=== PATIENT | female | born 1945 ===

== ENCOUNTER 2017-11-20 16:33 | Inpatient (IN) | payer MEDICARE, MEDICAID ==
[2017-11-20 18:06] LABS: BASO # 0.1 K/uL (0.0-0.2); EOS % 0.2 % (0.0-4.0); HEMOGLOBIN 13.8 g/dL (11.0-16.0); LYMPH # 1.9 K/uL (1.0-4.3); LYMPH % 22.4 % (20.0-40.0); MEAN CELL VOLUME 83.3 fL (81.0-99.0); MEAN CORPUSCULAR HEMOGLOBIN 27.8 pg (27.0-31.0); MEAN CORPUSCULAR HGB CONC 33.4 g/dL (33.0-37.0); MEAN PLATELET VOLUME 9.2 fL (7.2-11.7); MONO # 0.4 K/uL (0.0-0.8); MONO % 4.5 % (0.0-10.0); NEUT # 6.2 K/uL (1.8-7.0); NEUT % 71.9 % (50.0-75.0); NRBC % 0.1 % (0.0-2.0); RBC 4.95 Mil/uL (3.80-5.20); RED CELL DISTRIBUTION WIDTH 13.6 % (11.5-14.5); WHITE BLOOD COUNT 8.6 K/uL (4.8-10.8)
[2017-11-20 18:21] LABS: ALB/GLOB RATIO 1.1 (1.0-2.1); ALBUMIN 4.2 g/dL (3.5-5.0); ALT/SGPT 10 U/L (9-52); AST/SGOT 21 U/L (14-36); BLOOD UREA NITROGEN 11 mg/dL (7-17); GFR AFRICAN-AMERICAN > 60; GFR NON-AFRICAN AMERICAN > 60; HDL CHOLESTEROL 47 mg/dL (30-70)
[2017-11-20] MEDS ORDERED: Magnesium Sulfate 1 gm in D5W 1 GM/100 ML BAG IVPB STA (18:26)
[2017-11-20 18:30] LABS: LDL CHOLESTEROL 139 mg/dL (0-129)
[2017-11-20 18:36] LABS: PROTHROMBIN TIME 11.8 SECONDS (9.7-12.2)
[2017-11-20] MEDS ORDERED: Magnesium Sulfate 1 gm in D5W 1 GM/100 ML BAG IVPB ONE (19:08)
--- NOTE | 2017-11-20 19:13 | C.PDOC ---
History Of Present Illness Pt c/o generalized weakness/malaise since yesterday. Then this afternoon she develops left facial and LUE numbness that resolved upon arrival to the ED. Time Seen by Provider: 11/20/17 16:55 Chief Complaint (Nursing): Weakness/Neurological Deficit History Per: Patient, Family Onset/Duration Of Symptoms: Hrs (2) Current Symptoms Are (Timing): Gone Fall Associated With With Symptoms: No Severity: Moderate Additional History Per: Prior Records - Symptoms Of CVA Associated Symptoms: denies: Impaired Speech, Seizure Activity, New Vision Deficit(Left), New Vision Deficit(Right), Decreased Ability To Walk, New Confusion Character Of Deficits: Left: Sensory Loss, Face: Sensory Loss, Arm: Sensory Loss Recent Head Trauma: No Past Medical History Reviewed: Historical Data, Nursing Documentation, Vital Signs Vital Signs: Last Vital Signs Temp 97.8 F 11/20/17 16:36 Pulse 64 11/20/17 18:57 Resp 14 11/20/17 18:57 BP 153/79 H 11/20/17 18:57 Pulse Ox 98 11/20/17 18:57 - Medical History PMH: Diabetes, HTN, Hypercholesterolemia Other Surgeries: Renal transplant recipient. Family History: States: Unknown Family Hx - Social History Hx Alcohol Use: No Hx Substance Use: No - Immunization History Hx Tetanus Toxoid Vaccination: (unk) Hx Influenza Vaccination: Yes Hx Pneumococcal Vaccination: No Review Of Systems Except As Marked, All Systems Reviewed And Found Negative. Constitutional: Positive for: Weakness, Malaise. Negative for: Fever Cardiovascular: Negative for: Chest Pain Respiratory: Negative for: Cough, Shortness of Breath Gastrointestinal: Negative for: Vomiting, Abdominal Pain Genitourinary: Negative for: Dysuria Musculoskeletal: Positive for: Other (b/l knee pain). Negative for: Neck Pain, Back Pain Skin: Negative for: Rash Neurological: Positive for: Numbness (left face/arm), Headache. Negative for: Weakness, Incoordination, Change in Speech, Confusion, Seizures, Altered Mental Status Physical Exam - Physical Exam Appears: Non-toxic, No Acute Distress Skin: Normal Color, Warm, Dry, No Rash Head: Atraumatic, Normacephalic Eye(s): bilateral: Normal Inspection, PERRL, EOMI Neck: Normal ROM, Supple Cardiovascular: Rhythm Regular Respiratory: Normal Breath Sounds, No Accessory Muscle Use Gastrointestinal/Abdominal: Soft, No Tenderness Back: No CVA Tenderness Extremity: Normal ROM, No Pedal Edema Pulses: Left Radial: Normal Neurological/Psych: Oriented x3, Normal Speech, Normal Cognition, Normal Cranial Nerves, No Cerebellar Signs, Normal Motor, Normal Sensation ED Course And Treatment - Laboratory Results Result Diagrams: 11/20/17 18:02 11/20/17 18:02 Lab Interpretation: Abnormal Interpretation Of Abnormal: Hypomagnesemia ECG: Interpreted By Me, Viewed By Me ECG Rhythm: Sinus Rhythm, Nonspecific Changes Interpretation Of ECG: LVH Rate From EC O2 Sat by Pulse Oximetry: 98 Pulse Ox Interpretation: Normal - Radiology CXR: Interpreted by Me, Viewed By Me CXR Interpretation: Yes: No Acute Disease - CT Scan/US CT head Other Rad Studies (CT/US): Read By Radiologist, Radiology Report Reviewed CT/US Interpretation: Geographic decreased attenuation in the right occipital lobe suggesting age-indeterminate ischemic change; multiple bilateral age indeterminate basal ganglia lacunar infarcts; no bleed. NIHSS Stroke Scale 2 - Date/Time Evaluation Performed Date Performed: 11/20/17 When Was NIHSS Performed: Baseline - How Severe is the Stroke Level of Consciousness: 0=Alert LOC to Questions: 0=Both comments correct LOC to commands: 0=Obeys both correctly Best Gaze: 0=Normal Visual: 0=No visual loss Facial: 0=Normal Motor Arm - Left: 0=No drift Motor Arm - Right: 0=No drift Motor Leg - Left: 0=No drift Motor Leg - Right: 0=No drift Limb Ataxia: 0=Absent Sensory: 0=Normal Best Language: 0=No aphasia Dysarthia: 0=Normal articulation Extinction & Inattention (Neglect): 0=Normal, no object Score: 0 Severity Of Stroke: 0 = No Stroke Disposition Discussed With : Rudolph Burns Comment: He accepted pt on hospitalist service. Doctor Will See Patient In The: Hospital Counseled Patient/Family Regarding: Studies Performed, Diagnosis - Disposition Disposition: HOSPITALIZED Disposition Time: 19:19 Condition: FAIR - Clinical Impression Clinical Impression: Hypomagnesemia, TIA (transient ischemic attack), Generalized weakness
--- NOTE | 2017-11-20 20:09 | CP.PCM.HP ---
History of Present Illness - History of Present Illness History of Present Illness: PGY-1 H&P for Dr. Burns CC: Left sided facial numbness This is a 72 year old female with PMHx HTN, DM, CKD s/p kidney transplant who presented complaining of left sided facial numbness. Patient appears to be a poor historian. She stated that it started yesterday; however, the problem persisted today prompting the patient to seek medical attention. Patient also had left sided lower lip numbness as well. Patient states that her symptoms have resolved on her way to the emergency room. Patient also complains of chronic weakness and fatigue for several days however she cannot quantify the exact timeframe. Patient denies headache, dizziness, lightheadedness, or other neurological complaint. Patient has no other acute complaints at this time. Per daughter at bedside, patient is not compliant with her magnesium supplements. PMHx: HTN, DM, CKD s/p kidney transplant PSHx: 33 years ago. Kidney transplant May 2010 Allergies: NKDA Social: Denies tobacco, alcohol, drugs. Originally from [place]. Lives with boyfriend Family Hx: Father and daughter with HTN PMD: Dr. Brian [employer] Receiver: Dr. Brown Home medications: Tacrolimus 1 mg (3 caps AM and 2 caps PM) Mycophenylate 180 mg (3 tabs BID) Prednisone 5 mg PO daily Bactrim 800/160 1 tab M, W, F Magnesium oxide 400 mg 2 tabs daily Vitamin D 1000 units daily Cinacalcet 30 mg daily Simvastatin 20 mg HS Metformin 750 mg daily Toprol 50 mg daily Amlodipine 5 mg daily Lantus 20 units HS Novolog 10 units SC ACTID Present on Admission - Present on Admission Any Indicators Present on Admission: No Review of Systems - Constitutional Constitutional: absent: Chills, Fever - EENT Eyes: absent: Change in Vision Ears: absent: Decreased Hearing Nose/Mouth/Throat: absent: Nasal Congestion - Cardiovascular Cardiovascular: absent: Chest Pain - Respiratory Respiratory: absent: Dyspnea - Gastrointestinal Gastrointestinal: absent: Abdominal Pain, Constipation, Diarrhea, Nausea, Vomiting - Genitourinary Genitourinary: absent: Dysuria - Musculoskeletal Musculoskeletal: Numbness, Tingling. absent: Back Pain - Integumentary Integumentary: absent: Rash - Neurological Neurological: Numbness, Tingling, Weakness. absent: Dizziness, Headaches - Psychiatric Psychiatric: absent: Anxiety - Endocrine Endocrine: Fatigue. absent: Palpitations Past Patient History - Past Social History Smoking Status: Never Smoked - CARDIAC Hx Hypercholesterolemia: Yes Hx Hypertension: Yes - ENDOCRINE/METABOLIC Hx Diabetes Mellitus Type 2: Yes - PSYCHIATRIC Hx Substance Use: No - SURGICAL HISTORY Hx Kidney Transplant: Yes (R side) - ANESTHESIA Hx Anesthesia: Yes Hx Anesthesia Reactions: No Meds Allergies/Adverse Reactions: Allergies Allergy/AdvReac Type Severity Reaction Status Date / Time No Known Allergies Allergy Unverified 11/20/17 16:53 Physical Exam - Constitutional Appears: No Acute Distress - Head Exam Head Exam: ATRAUMATIC, NORMOCEPHALIC - Eye Exam Eye Exam: EOMI, PERRL - ENT Exam ENT Exam: Mucous Membranes Moist - Respiratory Exam Respiratory Exam: Clear to Auscultation Bilateral, NORMAL BREATHING PATTERN. absent: Rales, Rhonchi, Wheezes - Cardiovascular Exam Cardiovascular Exam: REGULAR RHYTHM, +S1, +S2 - GI/Abdominal Exam GI & Abdominal Exam: Normal Bowel Sounds, Soft. absent: Distended, Tenderness - Extremities Exam Extremities exam: Positive for: pedal pulses present. Negative for: pedal edema , tenderness - Neurological Exam Neurological exam: Alert, CN II-XII Intact, Oriented x3 - Psychiatric Exam Psychiatric exam: Normal Affect, Normal Mood - Skin Skin Exam: Dry, Warm Results - Vital Signs Recent Vital Signs: Last Vital Signs Temp 97.8 F 11/20/17 16:36 Pulse 64 11/20/17 18:57 Resp 14 11/20/17 18:57 BP 153/79 H 11/20/17 18:57 Pulse Ox 98 11/20/17 19:20 - Labs Result Diagrams: 11/20/17 18:02 11/20/17 18:02 Labs: Laboratory Results - last 24 hr 11/20/17 11/20/17 11/20/17 16:39 18:02 18:02 WBC 8.6 RBC 4.95 Hgb 13.8 Hct 41.2 MCV 83.3 MCH 27.8 MCHC 33.4 RDW 13.6 Plt Count 237 MPV 9.2 Neut % (Auto) 71.9 Lymph % (Auto) 22.4 Taney % (Auto) 4.5 Eos % (Auto) 0.2 Baso % (Auto) 1.0 Neut # (Auto) 6.2 Lymph # (Auto) 1.9 Taney # (Auto) 0.4 Eos # (Auto) 0.0 Baso # (Auto) 0.1 PT 11.8 INR 1.0 APTT 26 Sodium Potassium Chloride Carbon Dioxide Anion Gap BUN Creatinine Est GFR ( Amer) Est GFR (Non-Af Amer) POC Glucose (mg/dL) 181 H Random Glucose Calcium Phosphorus Magnesium Total Bilirubin AST ALT Alkaline Phosphatase Troponin I Total Protein Albumin Globulin Albumin/Globulin Ratio Triglycerides Cholesterol LDL Cholesterol Direct HDL Cholesterol 11/20/17 18:02 WBC RBC Hgb Hct MCV MCH MCHC RDW Plt Count MPV Neut % (Auto) Lymph % (Auto) Taney % (Auto) Eos % (Auto) Baso % (Auto) Neut # (Auto) Lymph # (Auto) Taney # (Auto) Eos # (Auto) Baso # (Auto) PT INR APTT Sodium 140 Potassium 3.9 Chloride 101 Carbon Dioxide 26 Anion Gap 16 BUN 11 Creatinine 0.6 L Est GFR ( Amer) > 60 Est GFR (Non-Af Amer) > 60 POC Glucose (mg/dL) Random Glucose 172 H Calcium 9.0 Phosphorus 3.3 Magnesium 1.0 L* Total Bilirubin 0.8 AST 21 ALT 10 Alkaline Phosphatase 85 Troponin I < 0.0120 Total Protein 8.1 Albumin 4.2 Globulin 3.9 Albumin/Globulin Ratio 1.1 Triglycerides 135 Cholesterol 219 H LDL Cholesterol Direct 139 H HDL Cholesterol 47 Assessment & Plan - Assessment and Plan (Free Text) Plan: Left sided facial numbness Neurogenic cause versus electrolyte abnormality considering that hypomagnesemia can present with paresthesias CT head demonstrates an age indeterminant lesion in the right occipital region as well as some basal ganglia region lacunar infarcts of unknown age Stat MRI in the morning Consider Neurology consult after MRI ASA 81 mg STAT given and then ordered as daily History of DM Resume home Lantus 20 units HS Resume home Novolog 10 units SC ACTID Hold Metformin in the case of contrast studies History of Renal Transplant f/u Prograf and Mycophenylate levels. (These are send-out labs.) Continue home dosing of Prograf 3 mg in AM and 2 mg in PM Continue home dosing of Mycophenylate 180 mg 3 tablets BID. Patient brought in home med as we do not carry this formulation. Hypomagnesemia Most likely from the side effect of Prograf and Mycophenylate and considering that the patient hasn't been taking her Magnesium supplement 1 bag Mag Sulfate given in the ED 2 more bags of Mag Sulfate were ordered f/u morning labs History of HTN Resume home Toprol 50 mg daily Resume home Norvasc 5 mg daily Prophylaxis Heart Healthy Carb consistent diet SCDs Heparin 5000 units SC Q12H Discussed with Dr. Katy Kim PGY-1
[2017-11-20] MEDS: (Lantus) Insulin Glargine, Recombinant SC SCH (21:54)
[2017-11-20] MEDS: Patient's Own Medication - Tablet/Capusle PO SCH (23:12)
[2017-11-20] MEDS: Magnesium Sulfate 1 gm in D5W 1 GM/100 ML BAG IVPB SCH (23:12)
[2017-11-21] MEDS: Magnesium Sulfate 1 gm in D5W 1 GM/100 ML BAG IVPB SCH (00:11)
[2017-11-21] MEDS ORDERED: Glucagon Recombinant 1 mg Inj IM PRN (06:55)
[2017-11-21] MEDS ORDERED: Dextrose 50% SYRINGE Inj (50 ml) IV PRN (06:55)
--- NOTE | 2017-11-21 07:09 | CT ---
PROCEDURE: CT HEAD WITHOUT CONTRAST. HISTORY: Headache. Left facial/LUE numbness. COMPARISON: None available TECHNIQUE: Axial computed tomography images were obtained through the head/brain without intravenous contrast. Radiation dose: Total exam DLP = six hundred forty-two mGy-cm. This CT exam was performed using one or more of the following dose reduction techniques: Automated exposure control, adjustment of the mA and/or kV according to patient size, and/or use of iterative reconstruction technique. FINDINGS: HEMORRHAGE: No intracranial hemorrhage. BRAIN: Large confluent area of low attenuation seen within the right occipital lobe. Additional prominent confluent area of low attenuation seen within the posterior right parietotemporal region on series 4, image 22 adjacent to the posterior horn of the right lateral ventricle. This is of uncertain clinical etiology and may represent chronic ischemic change. Additional etiologies not excluded. Correlation with MRI would be helpful for further evaluation if clinically indicated. Scattered focal lucencies in the subcortical and periventricular white matter suggestive for chronic microvascular ischemic change. Mild prominence of the sulci, gyri, and ventricles. Multiple small lacunar infarcts in the bilateral basal ganglia; age indeterminate. VENTRICLES: As above. CALVARIUM: Unremarkable. PARANASAL SINUSES: Unremarkable as visualized. No significant inflammatory changes. MASTOID AIR CELLS: Unremarkable as visualized. No inflammatory changes. OTHER FINDINGS: None. IMPRESSION: Large confluent area of low attenuation seen within the right occipital lobe. Additional prominent confluent area of low attenuation seen within the posterior right parietotemporal region on series 4, image 22 adjacent to the posterior horn of the right lateral ventricle. This is of uncertain clinical etiology and may represent chronic ischemic change. Additional etiologies not excluded. Correlation with MRI would be helpful for further evaluation if clinically indicated. Chronic microvascular ischemic change. Bilateral age indeterminate basal ganglia lacunar infarcts. These findings were preliminarily reported at 6:56 p.m. on 11/20/[address] Minnie Rowell from [employer].
--- NOTE | 2017-11-21 07:59 | RAD ---
Chest x-ray single frontal view History: Generalized weakness. Comparison: None available. Findings: Mild venous congestion. Right hilar prominence. Consolidative changes in the right infrahilar region. Tortuous ectatic aorta. Mild cardiomegaly. Degenerative changes in the spine and shoulders. Impression: Mild venous congestion. Right hilar prominence. Consolidative changes in the right infrahilar region. Tortuous ectatic aorta. Mild cardiomegaly.
[2017-11-21] MEDS: (Novolog) Insulin Aspart, Recombinant 100 u/ml 10 ml vial SC SCH ×3 (08:24→17:06)
[2017-11-21] MEDS: (Novolin R) Insulin Human Regular 100 units/ml vial SC SCH ×4 (08:26→21:45)
[2017-11-21 08:45] LABS: BASO # 0.1 K/uL (0.0-0.2); BASO % 0.8 % (0.0-2.0); EOS # 0.1 K/uL (0.0-0.7); HEMOGLOBIN 14.4 g/dL (11.0-16.0); LYMPH # 1.9 K/uL (1.0-4.3); LYMPH % 26.1 % (20.0-40.0); MEAN CELL VOLUME 83.2 fL (81.0-99.0); MEAN CORPUSCULAR HEMOGLOBIN 28.6 pg (27.0-31.0); MEAN CORPUSCULAR HGB CONC 34.4 g/dL (33.0-37.0); MEAN PLATELET VOLUME 9.4 fL (7.2-11.7); MONO # 0.5 K/uL (0.0-0.8); MONO % 7.1 % (0.0-10.0); NEUT # 4.7 K/uL (1.8-7.0); NRBC % 0.2 % (0.0-2.0); RBC 5.02 Mil/uL (3.80-5.20); RED CELL DISTRIBUTION WIDTH 13.5 % (11.5-14.5); WHITE BLOOD COUNT 7.3 K/uL (4.8-10.8)
[2017-11-21 09:00] LABS: BLOOD UREA NITROGEN 11 mg/dL (7-17); CALCIUM 9.6 mg/dl (8.6-10.4); GFR AFRICAN-AMERICAN > 60; GFR NON-AFRICAN AMERICAN > 60
[2017-11-21] MEDS ORDERED: Potassium Chloride 20 mEq ER Tab PO STA (09:14)
[2017-11-21] MEDS ORDERED: Ergocalciferol 50,000 Intl Units Cap PO SCH (10:00)
[2017-11-21] MEDS ORDERED: Potassium Chloride 20 mEq ER Tab PO ONE ×2 (10:00→11:00)
[2017-11-21] MEDS: Metoprolol Succinate 50 mg XL Tab PO SCH (10:10)
[2017-11-21] MEDS: Patient's Own Medication - Tablet/Capusle PO SCH ×2 (10:11→17:30)
--- NOTE | 2017-11-21 11:54 | CP.PCM.PN ---
<Anitra MORILLOLisa Robina - Last Filed: 11/21/17 12:19> Subjective - Date & Time of Evaluation Date of Evaluation: 11/21/17 Time of Evaluation: 09:30 - Subjective Subjective: Medicine progress note for Dr. Ocampo's service: Patient seen and examined. Patient states she no longer has numbness in her face. She reports mild dizziness when she stands up quickly but is able to ambulate well. Patient states she is eating well and has no other complaints. Objective - Vital Signs/Intake and Output Vital Signs (last 24 hours): Temp Pulse Resp BP Pulse Ox 97.9 F 80 18 154/72 H 98 11/21/17 07:35 11/21/17 10:13 11/21/17 07:35 11/21/17 10:13 11/21/17 07:35 - Medications Medications: Current Medications Acetaminophen (Tylenol 325mg Tab) 650 mg PO Q6 PRN PRN Reason: pain, fever Amlodipine Besylate (Norvasc) 5 mg PO DAILY [facility] Last Admin: 11/21/17 10:11 Dose: 5 mg Aspirin (Aspirin Chewable) 81 mg PO DAILY [facility] Last Admin: 11/21/17 10:10 Dose: 81 mg Cinacalcet (Sensipar) 30 mg PO DAILY [facility] Last Admin: 11/21/17 10:11 Dose: 30 mg Dextrose (Dextrose 50% Inj) 0 ml IV STAT PRN; Protocol PRN Reason: Hypoglycemia Protocol Dextrose (Glutose 15) 0 gm PO ONCE PRN; Protocol PRN Reason: Hypoglycemia Protocol Ergocalciferol (Drisdol 50,000 Intl Units Cap) 1 cap PO QWK [facility] Last Admin: 11/21/17 10:10 Dose: 1 cap Glucagon (Glucagen Diagnostic Kit) 0 mg IM STAT PRN; Protocol PRN Reason: Hypoglycemia Protocol Heparin Sodium (Porcine) (Heparin) 5,000 units SC Q12H [facility] Last Admin: 11/21/17 07:46 Dose: 5,000 units Home Med (Patient's Own Medication) 540 tab PO BID [facility] Last Admin: 11/21/17 10:11 Dose: 540 tab Dextrose (Dextrose 5% In Water 1000 Ml) 1,000 mls @ 0 mls/hr IV .Q0M PRN; Protocol; Per Protocol PRN Reason: Hypoglycemia Protocol Dextrose/Sodium Chloride (Dextrose 5%-0.45% Ns 500 Ml) 500 mls @ 100 mls/hr IV .Q5H ONE Stop: 11/21/17 16:30 Insulin Aspart (Novolog) 10 unit SC ACTID [facility] Last Admin: 11/21/17 08:24 Dose: 10 unit Insulin Glargine (Lantus) 20 unit SC [facility] Last Admin: 11/20/17 21:54 Dose: 20 units Insulin Human Regular (Novolin R) 0 unit SC ACHS [facility] PRN Reason: Protocol Last Admin: 11/21/17 08:26 Dose: Not Given Metoprolol Succinate (Toprol Xl) 50 mg PO DAILY [facility] Last Admin: 11/21/17 10:10 Dose: 50 mg Pneumococcal Polyvalent Vaccine (Pneumovax 23 Vaccine) 0.5 ml IM .ONCE ONE Stop: 11/24/17 10:01 Prednisone (Prednisone Tab) 5 mg PO DAILY [facility] Last Admin: 11/21/17 10:10 Dose: 5 mg Rosuvastatin Calcium (Crestor) 5 mg PO [facility] Last Admin: 11/20/17 21:53 Dose: 5 mg Tacrolimus (Prograf Cap) 2 mg PO [facility] Last Admin: 11/20/17 23:13 Dose: 2 mg Tacrolimus (Prograf Cap) 3 mg PO [facility] Last Admin: 11/21/17 10:15 Dose: 3 mg - Labs Labs: 11/21/17 08:37 11/21/17 08:37 PT 11.8 SECONDS (9.7-12.2) 11/20/17 18:02 INR 1.0 11/20/17 18:02 APTT 26 SECONDS (21-34) 11/20/17 18:02 - Constitutional Appears: Non-toxic, No Acute Distress - Head Exam Head Exam: ATRAUMATIC, NORMOCEPHALIC - Eye Exam Eye Exam: EOMI, PERRL. absent: Nystagmus - ENT Exam ENT Exam: Mucous Membranes Moist - Respiratory Exam Respiratory Exam: Clear to Ausculation Bilateral, NORMAL BREATHING PATTERN - Cardiovascular Exam Cardiovascular Exam: +S1, +S2 - GI/Abdominal Exam GI & Abdominal Exam: Soft, Normal Bowel Sounds. absent: Tenderness - Extremities Exam Extremities Exam: Normal Inspection. absent: Calf Tenderness, Pedal Edema - Neurological Exam Neurological Exam: Alert, Awake, CN II-XII Intact Neuro motor strength exam: Left Upper Extremity: 5, Right Upper Extremity: 5, Left Lower Extremity: 5, Right Lower Extremity: 5 Additional comments: normal sensation to face - Psychiatric Exam Psychiatric exam: Normal Affect - Skin Skin Exam: Warm Assessment and Plan - Assessment and Plan (Free Text) Assessment: Left sided facial numbness resolved Neurogenic cause versus electrolyte abnormality considering that hypomagnesemia can present with paresthesias CT head demonstrates an age indeterminant lesion in the right occipital region as well as some basal ganglia region lacunar infarcts of unknown age MRI pending Consider Neurology consult after MRI ASA 81 mg STAT given and then ordered as daily History of DM Resume home Lantus 20 units HS Resume home Novolog 10 units SC ACTID Hold Metformin in the case of contrast studies History of Renal Transplant f/u Prograf and Mycophenylate levels. (These are send-out labs.) Continue home dosing of Prograf 3 mg in AM and 2 mg in PM Continue home dosing of Mycophenylate 180 mg 3 tablets BID. Patient brought in home med as we do not carry this formulation. Hypomagnesemia Most likely from the side effect of Prograf and Mycophenylate and considering that the patient hasn't been taking her Magnesium supplement magnesium normal this morning however potassium 2.9 patient given potassium, will repeat BMP in PM History of HTN Resume home Toprol 50 mg daily Resume home Norvasc 5 mg daily Prophylaxis Heart Healthy Carb consistent diet PT SCDs Heparin 5000 units SC Q12H Case discussed with Dr. Ocampo <Hair Ocampo - Last Filed: 11/21/17 13:52> Objective - Vital Signs/Intake and Output Vital Signs (last 24 hours): Temp Pulse Resp BP Pulse Ox 97.9 F 81 18 154/72 H 98 11/21/17 07:35 11/21/17 12:00 11/21/17 07:35 11/21/17 10:13 11/21/17 07:35 - Medications Medications: Current Medications Acetaminophen (Tylenol 325mg Tab) 650 mg PO Q6 PRN PRN Reason: pain, fever Amlodipine Besylate (Norvasc) 5 mg PO DAILY [facility] Last Admin: 11/21/17 10:11 Dose: 5 mg Aspirin (Aspirin Chewable) 81 mg PO DAILY [facility] Last Admin: 11/21/17 10:10 Dose: 81 mg Cinacalcet (Sensipar) 30 mg PO DAILY [facility] Last Admin: 11/21/17 10:11 Dose: 30 mg Dextrose (Dextrose 50% Inj) 0 ml IV STAT PRN; Protocol PRN Reason: Hypoglycemia Protocol Dextrose (Glutose 15) 0 gm PO ONCE PRN; Protocol PRN Reason: Hypoglycemia Protocol Ergocalciferol (Drisdol 50,000 Intl Units Cap) 1 cap PO QWK [facility] Last Admin: 11/21/17 10:10 Dose: 1 cap Glucagon (Glucagen Diagnostic Kit) 0 mg IM STAT PRN; Protocol PRN Reason: Hypoglycemia Protocol Heparin Sodium (Porcine) (Heparin) 5,000 units SC Q12H [facility] Last Admin: 11/21/17 07:46 Dose: 5,000 units Home Med (Patient's Own Medication) 540 tab PO BID [facility] Last Admin: 11/21/17 10:11 Dose: 540 tab Dextrose (Dextrose 5% In Water 1000 Ml) 1,000 mls @ 0 mls/hr IV .Q0M PRN; Protocol; Per Protocol PRN Reason: Hypoglycemia Protocol Dextrose/Sodium Chloride (Dextrose 5%-0.45% Ns 500 Ml) 500 mls @ 100 mls/hr IV .Q5H ONE Stop: 11/21/17 16:30 Last Admin: 11/21/17 11:41 Dose: 100 mls/hr Insulin Aspart (Novolog) 10 unit SC ACTID [facility] Last Admin: 11/21/17 11:43 Dose: Not Given Insulin Glargine (Lantus) 20 unit SC [facility] Last Admin: 11/20/17 21:54 Dose: 20 units Insulin Human Regular (Novolin R) 0 unit SC ACHS [facility] PRN Reason: Protocol Last Admin: 11/21/17 11:42 Dose: Not Given Metoprolol Succinate (Toprol Xl) 50 mg PO DAILY [facility] Last Admin: 11/21/17 10:10 Dose: 50 mg Pneumococcal Polyvalent Vaccine (Pneumovax 23 Vaccine) 0.5 ml IM .ONCE ONE Stop: 11/24/17 10:01 Prednisone (Prednisone Tab) 5 mg PO DAILY [facility] Last Admin: 11/21/17 10:10 Dose: 5 mg Rosuvastatin Calcium (Crestor) 5 mg PO [facility] Last Admin: 11/20/17 21:53 Dose: 5 mg Tacrolimus (Prograf Cap) 2 mg PO [facility] Last Admin: 11/20/17 23:13 Dose: 2 mg Tacrolimus (Prograf Cap) 3 mg PO QAM [facility] Last Admin: 11/21/17 10:15 Dose: 3 mg - Labs Labs: 11/21/17 08:37 11/21/17 08:37 PT 11.8 SECONDS (9.7-12.2) 11/20/17 18:02 INR 1.0 11/20/17 18:02 APTT 26 SECONDS (21-34) 11/20/17 18:02 Attending/Attestation - Attestation I have personally seen and examined this patient.: Yes I have fully participated in the care of the patient.: Yes I have reviewed all pertinent clinical information, including history, physical exam and plan: Yes Notes (Text): Medical attending: Patient was seen and examined by me as well. The patient was with family member at bedside. When we came to see her, she was walking on her own in the room. She was not in any acute distress when I saw her. On exam she was AAO x 3 and also CN 2-21 intact. She reported the sensation of the facial numbness was resolved. She has been reciving IV Mag and as well K replacments. Later on in the morning I was notified her blood sugar was 49 after she had insulin administedred and she did ok with juice. We are currently pending on MRI to be done at this time. Probably it will be tommorow. thank you Hair Ocampo
[2017-11-21 14:54] LABS: URINE BILIRUBIN NEGATIVE (NEGATIVE); URINE BLOOD NEGATIVE (NEGATIVE); URINE CLARITY Clear (Clear); URINE COLOR Yellow (YELLOW); URINE GLUCOSE (UA) NORMAL (Normal); URINE LEUKOCYTE ESTERASE NEG Leu/uL (Negative); URINE PROTEIN NEGATIVE (NEGATIVE); URINE UROBILINOGEN NORMAL mg/dL (0.2-1.0)
[2017-11-21 19:47] LABS: CALCIUM 8.9 mg/dl (8.6-10.4)
[2017-11-21] MEDS: (Lantus) Insulin Glargine, Recombinant SC SCH (21:45)
[2017-11-22 07:39] LABS: BASO # 0.1 K/uL (0.0-0.2); BASO % 1.1 % (0.0-2.0); EOS # 0.1 K/uL (0.0-0.7); HEMOGLOBIN 12.9 g/dL (11.0-16.0); LYMPH % 30.8 % (20.0-40.0); MEAN CELL VOLUME 83.2 fL (81.0-99.0); MEAN CORPUSCULAR HEMOGLOBIN 28.9 pg (27.0-31.0); MEAN CORPUSCULAR HGB CONC 34.7 g/dL (33.0-37.0); MEAN PLATELET VOLUME 9.9 fL (7.2-11.7); MONO # 0.5 K/uL (0.0-0.8); MONO % 8.3 % (0.0-10.0); NEUT # 3.8 K/uL (1.8-7.0); NEUT % 58.8 % (50.0-75.0); RBC 4.49 Mil/uL (3.80-5.20); RED CELL DISTRIBUTION WIDTH 13.7 % (11.5-14.5); WHITE BLOOD COUNT 6.5 K/uL (4.8-10.8)
[2017-11-22 07:56] LABS: BLOOD UREA NITROGEN 17 mg/dL (7-17); CALCIUM 9.3 mg/dl (8.6-10.4); GFR AFRICAN-AMERICAN > 60; GFR NON-AFRICAN AMERICAN > 60
[2017-11-22] MEDS: (Novolin R) Insulin Human Regular 100 units/ml vial SC SCH ×4 (08:25→21:46)
[2017-11-22] MEDS: (Novolog) Insulin Aspart, Recombinant 100 u/ml 10 ml vial SC SCH ×2 (08:25→11:54)
[2017-11-22] MEDS: Metoprolol Succinate 50 mg XL Tab PO SCH (11:09)
[2017-11-22] MEDS: Patient's Own Medication - Tablet/Capusle PO SCH ×2 (11:11→17:54)
[2017-11-22] MEDS: Magnesium Sulfate 1 gm in D5W 1 GM/100 ML BAG IVPB SCH ×2 (11:11→11:54)
--- NOTE | 2017-11-22 13:22 | CP.PCM.CON ---
History of Present Illness - History of Present Illness History of Present Illness: This is a 72 year old female with PMHx HTN, DM, CKD s/p kidney transplant who presented complaining of left sided facial numbness. Patient appears to be a poor historian. She stated that it started yesterday; however, the problem persisted today prompting the patient to seek medical attention. Patient also had left sided lower lip numbness as well. Patient states that her symptoms have resolved on her way to the emergency room. Patient also complains of chronic weakness and fatigue for several days however she cannot quantify the exact timeframe. Patient denies headache, dizziness, lightheadedness, or other neurological complaint. Patient has no other acute complaints at this time. Per daughter at bedside, patient is not compliant with her magnesium supplements. Kidney transpalnt was living unrelated; no rejection episides PMHx: HTN, DM, CKD s/p kidney transplant PSHx: 33 years ago. Kidney transplant May 2010 Allergies: NKDA Social: Denies tobacco, alcohol, drugs. Originally from [place]. Lives with boyfriend Family Hx: Father and daughter with HTN PMD: Dr. Brian Home medications: Tacrolimus 1 mg (3 caps AM and 2 caps PM) Mycophenylate 180 mg (3 tabs BID) Prednisone 5 mg PO daily Bactrim 800/160 1 tab M, W, F Magnesium oxide 400 mg 2 tabs daily Vitamin D 1000 units daily Cinacalcet 30 mg daily Simvastatin 20 mg HS Metformin 750 mg daily Toprol 50 mg daily Amlodipine 5 mg daily Lantus 20 units HS Novolog 10 units SC ACTID Review of Systems - Review of Systems Systems not reviewed;Unavailable: Language Barrier - Constitutional Constitutional: Lethargy, Weakness - EENT Eyes: absent: As Per HPI, Blind Spots, Blurred Vision, Change in Vision, Decreased Night Vision, Diplopia, Discharge, Dry Eye, Exophthalmos, Floaters, Irritation, Itchy Eyes, Loss of Peripheral Vision, Pain, Photophobia, Requires Corrective Lenses, Sees Flashes, Spots in Vision, Tunnel Vision, Other Visual Disturbances, Loss of Vision, Other Ears: absent: As Per HPI, Decreased Hearing, Ear Discharge, Ear Pain, Tinnitus, Abnormal Hearing, Disequilibrium, Dizziness, Other Nose/Mouth/Throat: absent: As Per HPI, Epistaxis, Nasal Congestion, Nasal Discharge, Nasal Obstruction, Nasal Trauma, Nose Pain, Post Nasal Drip, Sinus Pain, Sinus Pressure, Bleeding Gums, Change in Voice, Dental Pain, Dry Mouth, Dysphagia, Halitosis, Hoarsness, Lip Swelling, Mouth Lesions, Mouth Pain, Odynophagia, Sore Throat, Throat Swelling, Tongue Swelling, Facial Pain, Neck Pain, Neck Mass, Other - Cardiovascular Cardiovascular: Dyspnea on Exertion, Lightheadedness - Respiratory Respiratory: absent: As Per HPI, Cough, Dyspnea, Hemoptysis, Dyspnea on Exertion , Wheezing, Snoring, Stridor, Pain on Inspiration, Chest Congestion, Excessive Mucous Production, Change in Mucous Color, Pain with Coughing, Other - Gastrointestinal Gastrointestinal: absent: As Per HPI, Abdominal Pain, Belching, Bloating, Change in Bowel Habits, Change in Stool Character, Coffee Ground Emesis, Constipation, Cramping, Diarrhea, Dyspepsia, Dysphagia, Early Satiety, Excessive Flatus, Fecal Incontinence, Heartburn, Hematemesis, Hematochezia, Loose Stools, Melena, Nausea, Odynophagia, Temesmus, Vomiting, Other - Genitourinary Genitourinary: As Per HPI - Musculoskeletal Musculoskeletal: Muscle Weakness, Myalgias - Neurological Neurological: Confusion, Weakness Past Patient History - Past Medical History & Family History Past Medical History?: Yes Past Family History: Reviewed and not pertinent - Past Social History Smoking Status: Never Smoked Chewing Tobacco Use: No Cigar Use: No Alcohol: None Drugs: Denies Home Situation {Lives}: With Family - CARDIAC Hx Hypercholesterolemia: Yes Hx Hypertension: Yes - ENDOCRINE/METABOLIC Hx Diabetes Mellitus Type 2: Yes - MUSCULOSKELETAL/RHEUMATOLOGICAL Hx Falls: No - PSYCHIATRIC Hx Substance Use: No - SURGICAL HISTORY Hx Kidney Transplant: Yes (R side) - ANESTHESIA Hx Anesthesia: Yes Hx Anesthesia Reactions: No Meds Allergies/Adverse Reactions: Allergies Allergy/AdvReac Type Severity Reaction Status Date / Time No Known Allergies Allergy Unverified 11/20/17 16:53 - Medications Medications: Current Medications Acetaminophen (Tylenol 325mg Tab) 650 mg PO Q6 PRN PRN Reason: pain, fever Amlodipine Besylate (Norvasc) 5 mg PO DAILY [facility] Last Admin: 11/22/17 11:07 Dose: 5 mg Aspirin (Aspirin Chewable) 81 mg PO DAILY [facility] Last Admin: 11/22/17 11:06 Dose: 81 mg Cinacalcet (Sensipar) 30 mg PO DAILY [facility] Last Admin: 11/22/17 11:08 Dose: 30 mg Dextrose (Dextrose 50% Inj) 0 ml IV STAT PRN; Protocol PRN Reason: Hypoglycemia Protocol Dextrose (Glutose 15) 0 gm PO ONCE PRN; Protocol PRN Reason: Hypoglycemia Protocol Ergocalciferol (Drisdol 50,000 Intl Units Cap) 1 cap PO QWK [facility] Last Admin: 11/21/17 10:10 Dose: 1 cap Glucagon (Glucagen Diagnostic Kit) 0 mg IM STAT PRN; Protocol PRN Reason: Hypoglycemia Protocol Heparin Sodium (Porcine) (Heparin) 5,000 units SC Q12H [facility] Last Admin: 11/22/17 11:09 Dose: 5,000 units Home Med (Patient's Own Medication) 540 tab PO BID [facility] Last Admin: 11/22/17 11:11 Dose: 540 tab Dextrose (Dextrose 5% In Water 1000 Ml) 1,000 mls @ 0 mls/hr IV .Q0M PRN; Protocol; Per Protocol PRN Reason: Hypoglycemia Protocol Insulin Human Regular (Novolin R) 0 unit SC ACHS [facility] PRN Reason: Protocol Last Admin: 11/22/17 11:31 Dose: Not Given Metoprolol Succinate (Toprol Xl) 50 mg PO DAILY [facility] Last Admin: 11/22/17 11:09 Dose: 50 mg Pneumococcal Polyvalent Vaccine (Pneumovax 23 Vaccine) 0.5 ml IM .ONCE ONE Stop: 11/24/17 10:01 Prednisone (Prednisone Tab) 5 mg PO DAILY [facility] Last Admin: 11/22/17 11:08 Dose: 5 mg Rosuvastatin Calcium (Crestor) 5 mg PO [facility] Last Admin: 11/21/17 21:19 Dose: 5 mg Tacrolimus (Prograf Cap) 2 mg PO HS [facility] Last Admin: 11/21/17 21:20 Dose: 2 mg Tacrolimus (Prograf Cap) 3 mg PO QAM [facility] Last Admin: 11/22/17 11:09 Dose: 3 mg Physical Exam - Constitutional Appears: No Acute Distress, Chronically Ill - Head Exam Head Exam: ATRAUMATIC, NORMAL INSPECTION - Eye Exam Eye Exam: EOMI, Normal appearance - Neck Exam Neck exam: Positive for: Normal Inspection. Negative for: Tenderness - Respiratory Exam Respiratory Exam: Clear to Auscultation Bilateral, NORMAL BREATHING PATTERN - Cardiovascular Exam Cardiovascular Exam: REGULAR RHYTHM, +S1 - GI/Abdominal Exam GI & Abdominal Exam: Soft. absent: Tenderness - Extremities Exam Extremities exam: Positive for: normal inspection. Negative for: tenderness - Neurological Exam Neurological exam: Alert, CN II-XII Intact, Oriented x3 - Skin Skin Exam: Dry, Warm Results - Vital Signs Recent Vital Signs: Last Vital Signs Temp 98.5 F 11/22/17 07:00 Pulse 59 L 11/22/17 07:00 Resp 20 11/22/17 07:00 BP 170/63 H 11/22/17 07:00 Pulse Ox 98 11/22/17 07:00 - Labs Result Diagrams: 11/22/17 07:26 11/22/17 07:26 Labs: Laboratory Results - last 24 hr 11/21/17 11/21/17 11/21/17 14:48 16:31 19:31 WBC RBC Hgb Hct MCV MCH MCHC RDW Plt Count MPV Neut % (Auto) Lymph % (Auto) [place] % (Auto) Eos % (Auto) Baso % (Auto) Neut # (Auto) Lymph # (Auto) [place] # (Auto) Eos # (Auto) Baso # (Auto) Sodium 135 Potassium 4.9 Chloride 99 Carbon Dioxide 25 Anion Gap 16 BUN 14 Creatinine 1.1 Est GFR ( Amer) 59 Est GFR (Non-Af Amer) 49 POC Glucose (mg/dL) 269 H Random Glucose 241 H Calcium 8.9 Phosphorus Magnesium Urine Color Yellow Urine Clarity Clear Urine pH 6.0 Ur Specific [place] 1.008 Urine Protein Negative Urine Glucose (UA) Normal Urine Ketones Negative Urine Blood Negative Urine Nitrate Negative Urine Bilirubin Negative Urine Urobilinogen Normal Ur Leukocyte Esterase Neg Urine WBC (Auto) < 1 11/21/17 11/22/17 11/22/17 21:11 06:24 07:26 WBC 6.5 RBC 4.49 Hgb 12.9 Hct 37.3 MCV 83.2 MCH 28.9 MCHC 34.7 RDW 13.7 Plt Count 212 MPV 9.9 Neut % (Auto) 58.8 Lymph % (Auto) 30.8 [place] % (Auto) 8.3 Eos % (Auto) 1.0 Baso % (Auto) 1.1 Neut # (Auto) 3.8 Lymph # (Auto) 2.0 [place] # (Auto) 0.5 Eos # (Auto) 0.1 Baso # (Auto) 0.1 Sodium Potassium Chloride Carbon Dioxide Anion Gap BUN Creatinine Est GFR ( Amer) Est GFR (Non-Af Amer) POC Glucose (mg/dL) 189 H 178 H Random Glucose Calcium Phosphorus Magnesium Urine Color Urine Clarity Urine pH Ur Specific [place] Urine Protein Urine Glucose (UA) Urine Ketones Urine Blood Urine Nitrate Urine Bilirubin Urine Urobilinogen Ur Leukocyte Esterase Urine WBC (Auto) 11/22/17 11/22/17 07:26 11:23 WBC RBC Hgb Hct MCV MCH MCHC RDW Plt Count MPV Neut % (Auto) Lymph % (Auto) [place] % (Auto) Eos % (Auto) Baso % (Auto) Neut # (Auto) Lymph # (Auto) [place] # (Auto) Eos # (Auto) Baso # (Auto) Sodium 140 Potassium 3.8 Chloride 102 Carbon Dioxide 27 Anion Gap 15 BUN 17 Creatinine 0.8 Est GFR ( Amer) > 60 Est GFR (Non-Af Amer) > 60 POC Glucose (mg/dL) 136 H Random Glucose 162 H Calcium 9.3 Phosphorus 3.3 Magnesium 1.3 L Urine Color Urine Clarity Urine pH Ur Specific [place] Urine Protein Urine Glucose (UA) Urine Ketones Urine Blood Urine Nitrate Urine Bilirubin Urine Urobilinogen Ur Leukocyte Esterase Urine WBC (Auto) Assessment & Plan (1) History of kidney transplant Status: Acute (2) TIA (transient ischemic attack) Status: Acute (3) Type 2 diabetes mellitus with diabetic nephropathy Status: Acute (4) Hypoglycemia Status: Acute - Assessment and Plan (Free Text) Plan: hypoglycemia due to mag wasting from tacrolimus- is RTA would replete oral mag more vigorously
--- NOTE | 2017-11-22 14:04 | CP.PCM.PN ---
<Magno Timmons - Last Filed: 11/22/17 18:05> Subjective - Date & Time of Evaluation Date of Evaluation: 11/22/17 Time of Evaluation: 14:03 - Subjective Subjective: Patient seen and examined at bedside. Doing well with no complaints at this time. Denies any weakness or numbness. Denies any syncope or blurry vision. Objective - Vital Signs/Intake and Output Vital Signs (last 24 hours): Temp Pulse Resp BP Pulse Ox 98.5 F 59 L 20 170/63 H 98 11/22/17 07:00 11/22/17 07:00 11/22/17 07:00 11/22/17 07:00 11/22/17 07:00 Intake and Output: 11/22/17 11/22/17 06:59 18:59 Intake Total 200 Balance 200 - Medications Medications: Current Medications Acetaminophen (Tylenol 325mg Tab) 650 mg PO Q6 PRN PRN Reason: pain, fever Amlodipine Besylate (Norvasc) 5 mg PO DAILY [facility] Last Admin: 11/22/17 11:07 Dose: 5 mg Aspirin (Aspirin Chewable) 81 mg PO DAILY [facility] Last Admin: 11/22/17 11:06 Dose: 81 mg Cinacalcet (Sensipar) 30 mg PO DAILY [facility] Last Admin: 11/22/17 11:08 Dose: 30 mg Dextrose (Dextrose 50% Inj) 0 ml IV STAT PRN; Protocol PRN Reason: Hypoglycemia Protocol Dextrose (Glutose 15) 0 gm PO ONCE PRN; Protocol PRN Reason: Hypoglycemia Protocol Ergocalciferol (Drisdol 50,000 Intl Units Cap) 1 cap PO QWK [facility] Last Admin: 11/21/17 10:10 Dose: 1 cap Glucagon (Glucagen Diagnostic Kit) 0 mg IM STAT PRN; Protocol PRN Reason: Hypoglycemia Protocol Heparin Sodium (Porcine) (Heparin) 5,000 units SC Q12H [facility] Last Admin: 11/22/17 11:09 Dose: 5,000 units Home Med (Patient's Own Medication) 540 tab PO BID [facility] Last Admin: 11/22/17 11:11 Dose: 540 tab Dextrose (Dextrose 5% In Water 1000 Ml) 1,000 mls @ 0 mls/hr IV .Q0M PRN; Protocol; Per Protocol PRN Reason: Hypoglycemia Protocol Insulin Human Regular (Novolin R) 0 unit SC ACHS [facility] PRN Reason: Protocol Last Admin: 11/22/17 11:31 Dose: Not Given Magnesium Oxide (Mag-Ox) 800 mg PO BID [facility] Metoprolol Succinate (Toprol Xl) 50 mg PO DAILY [facility] Last Admin: 11/22/17 11:09 Dose: 50 mg Pneumococcal Polyvalent Vaccine (Pneumovax 23 Vaccine) 0.5 ml IM .ONCE ONE Stop: 11/24/17 10:01 Prednisone (Prednisone Tab) 5 mg PO DAILY [facility] Last Admin: 11/22/17 11:08 Dose: 5 mg Rosuvastatin Calcium (Crestor) 5 mg PO HS [facility] Last Admin: 11/21/17 21:19 Dose: 5 mg Tacrolimus (Prograf Cap) 2 mg PO HS [facility] Last Admin: 11/21/17 21:20 Dose: 2 mg Tacrolimus (Prograf Cap) 3 mg PO QAM [facility] Last Admin: 11/22/17 11:09 Dose: 3 mg Trimethoprim/Sulfamethoxazole (Bactrim Ds Tab) 1 tab PO MWF [facility] PRN Reason: Protocol - Labs Labs: 11/22/17 07:26 11/22/17 07:26 PT 11.8 SECONDS (9.7-12.2) 11/20/17 18:02 INR 1.0 11/20/17 18:02 APTT 26 SECONDS (21-34) 11/20/17 18:02 - Constitutional Appears: Well - Head Exam Head Exam: ATRAUMATIC, NORMAL INSPECTION, NORMOCEPHALIC - Eye Exam Eye Exam: EOMI, Normal appearance, PERRL Pupil Exam: NORMAL ACCOMODATION, PERRL - ENT Exam ENT Exam: Mucous Membranes Moist, Normal Exam - Neck Exam Neck Exam: Full ROM, Normal Inspection. absent: Lymphadenopathy - Respiratory Exam Respiratory Exam: Clear to Ausculation Bilateral, NORMAL BREATHING PATTERN - Cardiovascular Exam Cardiovascular Exam: REGULAR RHYTHM, +S1, +S2. absent: Murmur - GI/Abdominal Exam GI & Abdominal Exam: Soft, Normal Bowel Sounds. absent: Tenderness - Rectal Exam Rectal Exam: NORMAL INSPECTION - Extremities Exam Extremities Exam: Full ROM, Normal Capillary Refill, Normal Inspection. absent : Joint Swelling, Pedal Edema - Back Exam Back Exam: NORMAL INSPECTION - Neurological Exam Neurological Exam: Alert, Awake, CN II-XII Intact, Normal Gait, Oriented x3 - Psychiatric Exam Psychiatric exam: Normal Affect, Normal Mood - Skin Skin Exam: Dry, Intact, Normal Color, Warm Assessment and Plan - Assessment and Plan (Free Text) Assessment: Left sided facial numbness Resolved CT head demonstrates an age indeterminant lesion in the right occipital region as well as some basal ganglia region lacunar infarcts of unknown age Patient refused MRI Neuro (Kendall) - F/u reccs ASA 81 QD History of DM ISS History of Renal Transplant Prograf 3 mg in AM and 2 mg in PM Mycophenylate 180 mg 3 tablets BID Hypomagnesemia Nephro (Henrry) - reccs 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, Replace PO BID History of HTN Toprol 50 mg daily Norvasc 5 mg daily Prophylaxis Heart Healthy Carb consistent diet PT SCDs Heparin 5000 units SC Q12H PT/OT <Jordan Shelton - Last Filed: 11/22/17 19:14> Objective - Vital Signs/Intake and Output Vital Signs (last 24 hours): Temp Pulse Resp BP Pulse Ox 98.1 F 67 18 149/79 99 11/22/17 16:44 11/22/17 16:44 11/22/17 16:44 11/22/17 16:44 11/22/17 16:44 Intake and Output: 11/22/17 11/23/17 18:59 06:59 Intake Total 640 Balance 640 - Medications Medications: Current Medications Acetaminophen (Tylenol 325mg Tab) 650 mg PO Q6 PRN PRN Reason: pain, fever Amlodipine Besylate (Norvasc) 5 mg PO DAILY [facility] Last Admin: 11/22/17 11:07 Dose: 5 mg Aspirin (Aspirin Chewable) 81 mg PO DAILY [facility] Last Admin: 11/22/17 11:06 Dose: 81 mg Cinacalcet (Sensipar) 30 mg PO DAILY [facility] Last Admin: 11/22/17 11:08 Dose: 30 mg Dextrose (Dextrose 50% Inj) 0 ml IV STAT PRN; Protocol PRN Reason: Hypoglycemia Protocol Dextrose (Glutose 15) 0 gm PO ONCE PRN; Protocol PRN Reason: Hypoglycemia Protocol Ergocalciferol (Drisdol 50,000 Intl Units Cap) 1 cap PO QWK [facility] Last Admin: 11/21/17 10:10 Dose: 1 cap Glucagon (Glucagen Diagnostic Kit) 0 mg IM STAT PRN; Protocol PRN Reason: Hypoglycemia Protocol Heparin Sodium (Porcine) (Heparin) 5,000 units SC Q12H [facility] Last Admin: 11/22/17 11:09 Dose: 5,000 units Home Med (Patient's Own Medication) 540 tab PO BID [facility] Last Admin: 11/22/17 17:54 Dose: 540 tab Dextrose (Dextrose 5% In Water 1000 Ml) 1,000 mls @ 0 mls/hr IV .Q0M PRN; Protocol; Per Protocol PRN Reason: Hypoglycemia Protocol Insulin Human Regular (Novolin R) 0 unit SC ACHS [facility] PRN Reason: Protocol Last Admin: 11/22/17 17:53 Dose: 2 unit Magnesium Oxide (Mag-Ox) 800 mg PO BID [facility] Last Admin: 11/22/17 17:53 Dose: 800 mg Metoprolol Succinate (Toprol Xl) 50 mg PO DAILY [facility] Last Admin: 11/22/17 11:09 Dose: 50 mg Pneumococcal Polyvalent Vaccine (Pneumovax 23 Vaccine) 0.5 ml IM .ONCE ONE Stop: 11/24/17 10:01 Prednisone (Prednisone Tab) 5 mg PO DAILY [facility] Last Admin: 11/22/17 11:08 Dose: 5 mg Rosuvastatin Calcium (Crestor) 5 mg PO HS [facility] Last Admin: 11/21/17 21:19 Dose: 5 mg Tacrolimus (Prograf Cap) 2 mg PO HS [facility] Last Admin: 11/21/17 21:20 Dose: 2 mg Tacrolimus (Prograf Cap) 3 mg PO QAM [facility] Last Admin: 11/22/17 11:09 Dose: 3 mg Trimethoprim/Sulfamethoxazole (Bactrim Ds Tab) 1 tab PO MWF [facility] PRN Reason: Protocol Last Admin: 11/22/17 14:19 Dose: 1 tab - Labs Labs: 11/22/17 07:26 11/22/17 07:26 PT 11.8 SECONDS (9.7-12.2) 11/20/17 18:02 INR 1.0 11/20/17 18:02 APTT 26 SECONDS (21-34) 11/20/17 18:02 Attending/Attestation - Attestation I have personally seen and examined this patient.: Yes I have fully participated in the care of the patient.: Yes I have reviewed all pertinent clinical information, including history, physical exam and plan: Yes Notes (Text): Patient was seen and examined No complain. Had left face numbness. past history of numbness . 1.Left sided facial numbness/possible TIA CT head demonstrates an age indeterminant lesion in the right occipital region as well as some basal ganglia region lacunar infarcts of unknown age Patient refused MRI ASA 81 mg,,has recurrent numbness.Poor historian. 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
[2017-11-22] MEDS ORDERED: Tmp-Smz 800 mg-160 mg DS Tab PO SCH (15:00)
[2017-11-22] MEDS: Magnesium Oxide 400 mg Tab UD PO SCH (17:53)
--- NOTE | 2017-11-22 20:48 | CP.PCM.CON ---
History of Present Illness - History of Present Illness History of Present Illness: Mrs. Cardozo is a 72-year-old woman with a past medical history of HTN, DM, CKD s/p kidney transplant who presented complaining of left sided facial numbness. She is uncertain when her symptoms started, but says that she feels this on and off. She initially refused MRI, but was agreeable to it after I spoke with her. She denied headache, nausea, vomiting, visual changes or weakness. CT of the head was consistent with multiple prior ischemic changes as well as a large area of right occipital lobe hypodensity consistent with a chronic infarct. Review of Systems - Review of Systems All systems: reviewed and no additional remarkable complaints except Past Patient History - Past Medical History & Family History Past Medical History?: Yes Past Family History: Reviewed and not pertinent - Past Social History Smoking Status: Never Smoked Chewing Tobacco Use: No Cigar Use: No Alcohol: None Drugs: Denies Home Situation {Lives}: With Family - CARDIAC Hx Hypercholesterolemia: Yes Hx Hypertension: Yes - ENDOCRINE/METABOLIC Hx Diabetes Mellitus Type 2: Yes - MUSCULOSKELETAL/RHEUMATOLOGICAL Hx Falls: No - PSYCHIATRIC Hx Substance Use: No - SURGICAL HISTORY Hx Kidney Transplant: Yes (R side) - ANESTHESIA Hx Anesthesia: Yes Hx Anesthesia Reactions: No Meds Allergies/Adverse Reactions: Allergies Allergy/AdvReac Type Severity Reaction Status Date / Time No Known Allergies Allergy Unverified 11/20/17 16:53 - Medications Medications: Current Medications Acetaminophen (Tylenol 325mg Tab) 650 mg PO Q6 PRN PRN Reason: pain, fever Amlodipine Besylate (Norvasc) 5 mg PO DAILY [facility] Last Admin: 11/22/17 11:07 Dose: 5 mg Aspirin (Aspirin Chewable) 81 mg PO DAILY [facility] Last Admin: 11/22/17 11:06 Dose: 81 mg Cinacalcet (Sensipar) 30 mg PO DAILY [facility] Last Admin: 11/22/17 11:08 Dose: 30 mg Dextrose (Dextrose 50% Inj) 0 ml IV STAT PRN; Protocol PRN Reason: Hypoglycemia Protocol Dextrose (Glutose 15) 0 gm PO ONCE PRN; Protocol PRN Reason: Hypoglycemia Protocol Ergocalciferol (Drisdol 50,000 Intl Units Cap) 1 cap PO QWK [facility] Last Admin: 11/21/17 10:10 Dose: 1 cap Glucagon (Glucagen Diagnostic Kit) 0 mg IM STAT PRN; Protocol PRN Reason: Hypoglycemia Protocol Heparin Sodium (Porcine) (Heparin) 5,000 units SC Q12H [facility] Last Admin: 11/22/17 11:09 Dose: 5,000 units Home Med (Patient's Own Medication) 540 tab PO BID [facility] Last Admin: 11/22/17 17:54 Dose: 540 tab Dextrose (Dextrose 5% In Water 1000 Ml) 1,000 mls @ 0 mls/hr IV .Q0M PRN; Protocol; Per Protocol PRN Reason: Hypoglycemia Protocol Insulin Human Regular (Novolin R) 0 unit SC ACHS [facility] PRN Reason: Protocol Last Admin: 11/22/17 17:53 Dose: 2 unit Magnesium Oxide (Mag-Ox) 800 mg PO BID [facility] Last Admin: 11/22/17 17:53 Dose: 800 mg Metoprolol Succinate (Toprol Xl) 50 mg PO DAILY [facility] Last Admin: 11/22/17 11:09 Dose: 50 mg Pneumococcal Polyvalent Vaccine (Pneumovax 23 Vaccine) 0.5 ml IM .ONCE ONE Stop: 11/24/17 10:01 Prednisone (Prednisone Tab) 5 mg PO DAILY [facility] Last Admin: 11/22/17 11:08 Dose: 5 mg Rosuvastatin Calcium (Crestor) 5 mg PO HS [facility] Last Admin: 11/21/17 21:19 Dose: 5 mg Tacrolimus (Prograf Cap) 2 mg PO HS [facility] Last Admin: 11/21/17 21:20 Dose: 2 mg Tacrolimus (Prograf Cap) 3 mg PO QAM [facility] Last Admin: 11/22/17 11:09 Dose: 3 mg Trimethoprim/Sulfamethoxazole (Bactrim Ds Tab) 1 tab PO MWF [facility] PRN Reason: Protocol Last Admin: 11/22/17 14:19 Dose: 1 tab Physical Exam - Constitutional Appears: Well - Head Exam Head Exam: ATRAUMATIC, NORMAL INSPECTION, NORMOCEPHALIC - Eye Exam Eye Exam: EOMI, Normal appearance, PERRL - ENT Exam ENT Exam: Mucous Membranes Moist, Normal Exam - Cardiovascular Exam Cardiovascular Exam: REGULAR RHYTHM - Rectal Exam Rectal Exam: Deferred - Neurological Exam Neurological exam: Alert, CN II-XII Intact, Normal Gait, Oriented x3 Additional comments: Reflexes brisk on the left side upper and lower extremities. She had a partial left visual field cut. Sensation was intact on both sides of the face as well as upper and lower extremities. NIHSS = 0 - Psychiatric Exam Psychiatric exam: Normal Affect, Normal Mood Results - Vital Signs Recent Vital Signs: Last Vital Signs Temp 98.1 F 11/22/17 16:44 Pulse 67 11/22/17 16:44 Resp 18 11/22/17 16:44 BP 149/79 11/22/17 16:44 Pulse Ox 99 11/22/17 16:44 - Labs Result Diagrams: 11/22/17 07:26 11/22/17 07:26 Labs: Laboratory Results - last 24 hr 11/20/17 11/21/17 11/22/17 21:19 21:11 06:24 WBC RBC Hgb Hct MCV MCH MCHC RDW Plt Count MPV Neut % (Auto) Lymph % (Auto) [place] % (Auto) Eos % (Auto) Baso % (Auto) Neut # (Auto) Lymph # (Auto) [place] # (Auto) Eos # (Auto) Baso # (Auto) Sodium Potassium Chloride Carbon Dioxide Anion Gap BUN Creatinine Est GFR ( Amer) Est GFR (Non-Af Amer) POC Glucose (mg/dL) 189 H 178 H Random Glucose Calcium Phosphorus Magnesium Tacrolimus (LC/MS/MS) 3.8 L 11/22/17 11/22/17 11/22/17 07:26 07:26 11:23 WBC 6.5 RBC 4.49 Hgb 12.9 Hct 37.3 MCV 83.2 MCH 28.9 MCHC 34.7 RDW 13.7 Plt Count 212 MPV 9.9 Neut % (Auto) 58.8 Lymph % (Auto) 30.8 [place] % (Auto) 8.3 Eos % (Auto) 1.0 Baso % (Auto) 1.1 Neut # (Auto) 3.8 Lymph # (Auto) 2.0 [place] # (Auto) 0.5 Eos # (Auto) 0.1 Baso # (Auto) 0.1 Sodium 140 Potassium 3.8 Chloride 102 Carbon Dioxide 27 Anion Gap 15 BUN 17 Creatinine 0.8 Est GFR ( Amer) > 60 Est GFR (Non-Af Amer) > 60 POC Glucose (mg/dL) 136 H Random Glucose 162 H Calcium 9.3 Phosphorus 3.3 Magnesium 1.3 L Tacrolimus (LC/MS/MS) 11/22/17 16:58 WBC RBC Hgb Hct MCV MCH MCHC RDW Plt Count MPV Neut % (Auto) Lymph % (Auto) [place] % (Auto) Eos % (Auto) Baso % (Auto) Neut # (Auto) Lymph # (Auto) [place] # (Auto) Eos # (Auto) Baso # (Auto) Sodium Potassium Chloride Carbon Dioxide Anion Gap BUN Creatinine Est GFR ( Amer) Est GFR (Non-Af Amer) POC Glucose (mg/dL) 217 H Random Glucose Calcium Phosphorus Magnesium Tacrolimus (LC/MS/MS) Assessment & Plan (1) TIA (transient ischemic attack) Assessment and Plan: The patient has multiple risk factors for stroke and should be worked up and treated for stroke prevention. CT head was consistent with several chronic infarcts. I recommend the followin. Telemetry 2. MRI of the brain without contrast and MRA of the head/neck without contrast 3. Echocardiogram 4. Start Plavix 75 mg daily and stop Aspirin 81 mg daily 5. PT/OT eval and treatment 6. Continue simvastatin to maintain LDL < 100 7. Case management consult Thank you. Status: Acute
[2017-11-23 00:44] VITALS: RESP 20; O2SAT 98
[2017-11-23 07:53] VITALS: BP 144/74; PULSE 60; TEMP 98.3
[2017-11-23 07:53] LABS: BASO # 0.1 K/uL (0.0-0.2); BASO % 1.1 % (0.0-2.0); EOS # 0.1 K/uL (0.0-0.7); HEMOGLOBIN 13.1 g/dL (11.0-16.0); MEAN CELL VOLUME 83.7 fL (81.0-99.0); MEAN CORPUSCULAR HEMOGLOBIN 28.4 pg (27.0-31.0); MEAN CORPUSCULAR HGB CONC 33.9 g/dL (33.0-37.0); MEAN PLATELET VOLUME 9.8 fL (7.2-11.7); MONO # 0.5 K/uL (0.0-0.8); NEUT # 3.6 K/uL (1.8-7.0); NEUT % 57.9 % (50.0-75.0); RBC 4.62 Mil/uL (3.80-5.20); RED CELL DISTRIBUTION WIDTH 13.7 % (11.5-14.5); WHITE BLOOD COUNT 6.2 K/uL (4.8-10.8)
[2017-11-23 08:03] LABS: ALB/GLOB RATIO 1.2 (1.0-2.1); ALBUMIN 3.7 g/dL (3.5-5.0); ALT/SGPT 9 U/L (9-52); AST/SGOT 19 U/L (14-36); BLOOD UREA NITROGEN 17 mg/dL (7-17); CALCIUM 9.3 mg/dl (8.6-10.4); GFR AFRICAN-AMERICAN > 60; GFR NON-AFRICAN AMERICAN > 60
[2017-11-23] MEDS: (Novolin R) Insulin Human Regular 100 units/ml vial SC SCH ×2 (08:53→12:10)
[2017-11-23] MEDS: Magnesium Oxide 400 mg Tab UD PO SCH (10:13)
[2017-11-23] MEDS: Metoprolol Succinate 50 mg XL Tab PO SCH (10:14)
[2017-11-23] MEDS: Patient's Own Medication - Tablet/Capusle PO SCH (10:16)
--- NOTE | 2017-11-23 11:17 | CP.PCM.DIS ---
<Magno Timmons - Last Filed: 11/23/17 11:14> Provider - Provider Date of Admission: 11/20/17 19:20 Attending physician: Rudolph Burns MD Primary care physician: Snehal Consults: Neuro: Kendall Nephro: Henrry Time Spent in preparation of Discharge (in minutes): 45 Hospital Course - Lab Results Lab Results: Most Recent Lab Values WBC 6.2 K/uL (4.8-10.8) 11/23/17 07:34 RBC 4.62 Mil/uL (3.80-5.20) 11/23/17 07:34 Hgb 13.1 g/dL (11.0-16.0) 11/23/17 07:34 Hct 38.7 % (34.0-47.0) 11/23/17 07:34 MCV 83.7 fL (81.0-99.0) 11/23/17 07:34 MCH 28.4 pg (27.0-31.0) 11/23/17 07:34 MCHC 33.9 g/dL (33.0-37.0) 11/23/17 07:34 RDW 13.7 % (11.5-14.5) 11/23/17 07:34 Plt Count 214 K/uL (130-400) 11/23/17 07:34 MPV 9.8 fL (7.2-11.7) 11/23/17 07:34 Neut % (Auto) 57.9 % (50.0-75.0) 11/23/17 07:34 Lymph % (Auto) 32.0 % (20.0-40.0) 11/23/17 07:34 [place] % (Auto) 8.0 % (0.0-10.0) 11/23/17 07:34 Eos % (Auto) 1.0 % (0.0-4.0) 11/23/17 07:34 Baso % (Auto) 1.1 % (0.0-2.0) 11/23/17 07:34 Neut # (Auto) 3.6 K/uL (1.8-7.0) 11/23/17 07:34 Lymph # (Auto) 2.0 K/uL (1.0-4.3) 11/23/17 07:34 [place] # (Auto) 0.5 K/uL (0.0-0.8) 11/23/17 07:34 Eos # (Auto) 0.1 K/uL (0.0-0.7) 11/23/17 07:34 Baso # (Auto) 0.1 K/uL (0.0-0.2) 11/23/17 07:34 PT 11.8 SECONDS (9.7-12.2) 11/20/17 18:02 INR 1.0 11/20/17 18:02 APTT 26 SECONDS (21-34) 11/20/17 18:02 Sodium 141 mmol/L (132-148) 11/23/17 07:34 Potassium 4.1 mmol/L (3.6-5.2) 11/23/17 07:34 Chloride 102 mmol/L (98-107) 11/23/17 07:34 Carbon Dioxide 26 mmol/L (22-30) 11/23/17 07:34 Anion Gap 17 (10-20) 11/23/17 07:34 BUN 17 mg/dL (7-17) 11/23/17 07:34 Creatinine 0.9 mg/dL (0.7-1.2) 11/23/17 07:34 Est GFR ( Amer) > 60 11/23/17 07:34 Est GFR (Non-Af Amer) > 60 11/23/17 07:34 POC Glucose (mg/dL) 178 mg/dL (65-110) H 11/23/17 06:31 Random Glucose 162 mg/dL (65-105) H 11/23/17 07:34 Hemoglobin A1c 7.7 % (4.2-6.5) H 11/20/17 18:02 Calcium 9.3 mg/dl (8.6-10.4) 11/23/17 07:34 Phosphorus 3.5 mg/dL (2.5-4.5) 11/23/17 07:34 Magnesium 1.6 mg/dL (1.6-2.3) 11/23/17 07:34 Total Bilirubin 0.5 mg/dL (0.2-1.3) 11/23/17 07:34 AST 19 U/L (14-36) 11/23/17 07:34 ALT 9 U/L (9-52) 11/23/17 07:34 Alkaline Phosphatase 92 U/L (38-126) 11/23/17 07:34 Troponin I < 0.0120 ng/mL (0.00-0.120) 11/20/17 18:02 Total Protein 6.8 g/dL (6.3-8.3) 11/23/17 07:34 Albumin 3.7 g/dL (3.5-5.0) 11/23/17 07:34 Globulin 3.2 gm/dL (2.2-3.9) 11/23/17 07:34 Albumin/Globulin Ratio 1.2 (1.0-2.1) 11/23/17 07:34 Triglycerides 135 mg/dL (0-149) 11/20/17 18:02 Cholesterol 219 mg/dL (0-199) H 11/20/17 18:02 LDL Cholesterol Direct 139 mg/dL (0-129) H 11/20/17 18:02 HDL Cholesterol 47 mg/dL (30-70) 11/20/17 18:02 Urine Color Yellow (YELLOW) 11/21/17 14:48 Urine Clarity Clear (Clear) 11/21/17 14:48 Urine pH 6.0 (5.0-8.0) 11/21/17 14:48 Ur Specific [place] 1.008 (1.003-1.030) 11/21/17 14:48 Urine Protein Negative mg/dL (NEGATIVE) 11/21/17 14:48 Urine Glucose (UA) Normal mg/dL (Normal) 11/21/17 14:48 Urine Ketones Negative mg/dL (NEGATIVE) 11/21/17 14:48 Urine Blood Negative (NEGATIVE) 11/21/17 14:48 Urine Nitrate Negative (NEGATIVE) 11/21/17 14:48 Urine Bilirubin Negative (NEGATIVE) 11/21/17 14:48 Urine Urobilinogen Normal mg/dL (0.2-1.0) 11/21/17 14:48 Ur Leukocyte Esterase Neg Onesimo/uL (Negative) 11/21/17 14:48 Urine WBC (Auto) < 1 /hpf (0-5) 11/21/17 14:48 Tacrolimus (LC/MS/MS) 3.8 mcg/L (5.0-20.0) L 11/20/17 21:19 - Hospital Course Hospital Course: This is a 72 year old female with PMHx HTN, DM, CKD s/p kidney transplant who presented complaining of left sided facial numbness. Patient appears to be a poor historian. She stated that it started yesterday; however, the problem persisted today prompting the patient to seek medical attention. Patient also had left sided lower lip numbness as well. Patient states that her symptoms have resolved on her way to the emergency room. Patient also complains of chronic weakness and fatigue for several days however she cannot quantify the exact timeframe. Patient denies headache, dizziness, lightheadedness, or other neurological complaint. Patient has no other acute complaints at this time. Per daughter at bedside, patient is not compliant with her magnesium supplements. Hospital course: patient symptoms resolved by the time she was admitted to the hospital. We consulted neurology and they recommended MRI and MRA but patient refused as she was claustrophobic. She also refused getting medication in order to make her more calm for the MRI. Neuro also wanted to change her from ASA to Plavix which we did. Patients Mag was low during the hospital stay wich we replaced as well as consulting Nephro for their reccs. Head CT showed old strokes. Patient will need open MRI as outpatient. Dr. Argueta has agreed to set this up and follow her as an outpatient. Discharge Exam - Head Exam Head Exam: ATRAUMATIC, NORMAL INSPECTION, NORMOCEPHALIC - Eye Exam Eye Exam: EOMI, Normal appearance, PERRL Pupil Exam: NORMAL ACCOMODATION, PERRL - GI/Abdominal Exam GI & Abdominal Exam: Normal Bowel Sounds - Neurological Exam Neurological exam: Alert, CN II-XII Intact, Normal Gait, Oriented x3, Reflexes Normal - Psychiatric Exam Psychiatric exam: Normal Affect, Normal Mood - Skin Skin Exam: Dry, Intact, Normal Color, Warm Discharge Plan - Discharge Medications Prescriptions: Clopidogrel [Plavix] 75 mg PO DAILY #30 tab - Follow Up Plan Condition: FAIR Disposition: HOME/ ROUTINE Instructions: Heart Healthy Diet, High Blood Pressure (DC), Transient Ischemic Attack (DC), Carbohydrate Counting Diet, Diabetes Diet , Clopidogrel, Magnesium Oxide, Low Magnesium Level (DC), Weakness (GEN) Additional Instructions: Please follow up with primary care doctor in 7-10 days. Please follow up with Dr. Argueta for outpatient MRI. I have attached his office information. Please call to make an appointment. Please continue home medications in addition to stopping aspirin and starting plavix 75mg Daily. Please com back to the ED if symptoms return Patient Needs home PT for unsteady gait and fall risk for [facility] Referrals: Estevan Argueta MD [Staff Provider] - <[email or web address] - Last Filed: 11/24/17 15:30> Provider - Provider Date of Admission: 11/20/17 19:20 Attending physician: Rudolph Burns MD Hospital Course - Lab Results Lab Results: Most Recent Lab Values WBC 6.2 K/uL (4.8-10.8) 11/23/17 07:34 RBC 4.62 Mil/uL (3.80-5.20) 11/23/17 07:34 Hgb 13.1 g/dL (11.0-16.0) 11/23/17 07:34 Hct 38.7 % (34.0-47.0) 11/23/17 07:34 MCV 83.7 fL (81.0-99.0) 11/23/17 07:34 MCH 28.4 pg (27.0-31.0) 11/23/17 07:34 MCHC 33.9 g/dL (33.0-37.0) 11/23/17 07:34 RDW 13.7 % (11.5-14.5) 11/23/17 07:34 Plt Count 214 K/uL (130-400) 11/23/17 07:34 MPV 9.8 fL (7.2-11.7) 11/23/17 07:34 Neut % (Auto) 57.9 % (50.0-75.0) 11/23/17 07:34 Lymph % (Auto) 32.0 % (20.0-40.0) 11/23/17 07:34 [place] % (Auto) 8.0 % (0.0-10.0) 11/23/17 07:34 Eos % (Auto) 1.0 % (0.0-4.0) 11/23/17 07:34 Baso % (Auto) 1.1 % (0.0-2.0) 11/23/17 07:34 Neut # (Auto) 3.6 K/uL (1.8-7.0) 11/23/17 07:34 Lymph # (Auto) 2.0 K/uL (1.0-4.3) 11/23/17 07:34 [place] # (Auto) 0.5 K/uL (0.0-0.8) 11/23/17 07:34 Eos # (Auto) 0.1 K/uL (0.0-0.7) 11/23/17 07:34 Baso # (Auto) 0.1 K/uL (0.0-0.2) 11/23/17 07:34 PT 11.8 SECONDS (9.7-12.2) 11/20/17 18:02 INR 1.0 11/20/17 18:02 APTT 26 SECONDS (21-34) 11/20/17 18:02 Sodium 141 mmol/L (132-148) 11/23/17 07:34 Potassium 4.1 mmol/L (3.6-5.2) 11/23/17 07:34 Chloride 102 mmol/L (98-107) 11/23/17 07:34 Carbon Dioxide 26 mmol/L (22-30) 11/23/17 07:34 Anion Gap 17 (10-20) 11/23/17 07:34 BUN 17 mg/dL (7-17) 11/23/17 07:34 Creatinine 0.9 mg/dL (0.7-1.2) 11/23/17 07:34 Est GFR ( Amer) > 60 11/23/17 07:34 Est GFR (Non-Af Amer) > 60 11/23/17 07:34 POC Glucose (mg/dL) 198 mg/dL (65-110) H 11/23/17 11:20 Random Glucose 162 mg/dL (65-105) H 11/23/17 07:34 Hemoglobin A1c 7.7 % (4.2-6.5) H 11/20/17 18:02 Calcium 9.3 mg/dl (8.6-10.4) 11/23/17 07:34 Phosphorus 3.5 mg/dL (2.5-4.5) 11/23/17 07:34 Magnesium 1.6 mg/dL (1.6-2.3) 11/23/17 07:34 Total Bilirubin 0.5 mg/dL (0.2-1.3) 11/23/17 07:34 AST 19 U/L (14-36) 11/23/17 07:34 ALT 9 U/L (9-52) 11/23/17 07:34 Alkaline Phosphatase 92 U/L (38-126) 11/23/17 07:34 Troponin I < 0.0120 ng/mL (0.00-0.120) 11/20/17 18:02 Total Protein 6.8 g/dL (6.3-8.3) 11/23/17 07:34 Albumin 3.7 g/dL (3.5-5.0) 11/23/17 07:34 Globulin 3.2 gm/dL (2.2-3.9) 11/23/17 07:34 Albumin/Globulin Ratio 1.2 (1.0-2.1) 11/23/17 07:34 Triglycerides 135 mg/dL (0-149) 11/20/17 18:02 Cholesterol 219 mg/dL (0-199) H 11/20/17 18:02 LDL Cholesterol Direct 139 mg/dL (0-129) H 11/20/17 18:02 HDL Cholesterol 47 mg/dL (30-70) 11/20/17 18:02 Urine Color Yellow (YELLOW) 11/21/17 14:48 Urine Clarity Clear (Clear) 11/21/17 14:48 Urine pH 6.0 (5.0-8.0) 11/21/17 14:48 Ur Specific [place] 1.008 (1.003-1.030) 11/21/17 14:48 Urine Protein Negative mg/dL (NEGATIVE) 11/21/17 14:48 Urine Glucose (UA) Normal mg/dL (Normal) 11/21/17 14:48 Urine Ketones Negative mg/dL (NEGATIVE) 11/21/17 14:48 Urine Blood Negative (NEGATIVE) 11/21/17 14:48 Urine Nitrate Negative (NEGATIVE) 11/21/17 14:48 Urine Bilirubin Negative (NEGATIVE) 11/21/17 14:48 Urine Urobilinogen Normal mg/dL (0.2-1.0) 11/21/17 14:48 Ur Leukocyte Esterase Neg Ones[place]/uL (Negative) 11/21/17 14:48 Urine WBC (Auto) < 1 /hpf (0-5) 11/21/17 14:48 Tacrolimus (LC/MS/MS) 3.8 mcg/L (5.0-20.0) L 11/20/17 21:19 Attending/Attestation - Attestation I have personally seen and examined this patient.: Yes I have fully participated in the care of the patient.: Yes I have reviewed all pertinent clinical information, including history, physical exam and plan: Yes Notes (Text): seen and examined. Discharge plan discussed with the patient I agree with the documentation of the resident's assessment and the plan
--- NOTE | 2017-11-23 11:40 | CP.PCM.PN ---
Subjective - Date & Time of Evaluation Date of Evaluation: 11/23/17 Time of Evaluation: 11:40 - Subjective Subjective: seen and examined labs noted head ct noted denies any nausea vomiting diarrhea sob cp fevers chills rash dizziness headache weakness numbness Objective - Vital Signs/Intake and Output Vital Signs (last 24 hours): Temp Pulse Resp BP Pulse Ox 98.3 F 60 20 144/74 98 11/23/17 07:30 11/23/17 07:30 11/23/17 07:30 11/23/17 07:30 11/23/17 07:30 - Medications Medications: Current Medications Amlodipine Besylate (Norvasc) 5 mg PO DAILY [facility] Last Admin: 11/23/17 10:15 Dose: 5 mg Cinacalcet (Sensipar) 30 mg PO DAILY [facility] Last Admin: 11/23/17 10:15 Dose: 30 mg Clopidogrel Bisulfate (Plavix) 75 mg PO DAILY [facility] Last Admin: 11/23/17 10:14 Dose: 75 mg Ergocalciferol (Drisdol 50,000 Intl Units Cap) 1 cap PO QWK [facility] Last Admin: 11/21/17 10:10 Dose: 1 cap Heparin Sodium (Porcine) (Heparin) 5,000 units SC Q12H [facility] Last Admin: 11/23/17 10:18 Dose: Not Given Home Med (Patient's Own Medication) 540 tab PO BID [facility] Last Admin: 11/23/17 10:16 Dose: 540 tab Insulin Human Regular (Novolin R) 0 unit SC [facility] PRN Reason: Protocol Last Admin: 11/23/17 08:53 Dose: 1 unit Magnesium Oxide (Mag-Ox) 800 mg PO BID [facility] Last Admin: 11/23/17 10:13 Dose: 800 mg Metoprolol Succinate (Toprol Xl) 50 mg PO DAILY [facility] Last Admin: 11/23/17 10:14 Dose: 50 mg Pneumococcal Polyvalent Vaccine (Pneumovax 23 Vaccine) 0.5 ml IM .ONCE ONE Stop: 11/24/17 10:01 Prednisone (Prednisone Tab) 5 mg PO DAILY [facility] Last Admin: 11/23/17 10:14 Dose: 5 mg Rosuvastatin Calcium (Crestor) 5 mg PO HS [facility] Last Admin: 11/22/17 21:12 Dose: 5 mg Tacrolimus (Prograf Cap) 2 mg PO HS [facility] Last Admin: 11/22/17 21:12 Dose: 2 mg Tacrolimus (Prograf Cap) 3 mg PO QAM [facility] Last Admin: 11/23/17 10:15 Dose: 3 mg Trimethoprim/Sulfamethoxazole (Bactrim Ds Tab) 1 tab PO MWF [facility] PRN Reason: Protocol Last Admin: 11/22/17 14:19 Dose: 1 tab - Labs Labs: 11/23/17 07:34 11/23/17 07:34 PT 11.8 SECONDS (9.7-12.2) 11/20/17 18:02 INR 1.0 11/20/17 18:02 APTT 26 SECONDS (21-34) 11/20/17 18:02 - Constitutional Appears: Non-toxic, No Acute Distress - Head Exam Head Exam: NORMAL INSPECTION - Eye Exam Eye Exam: Normal appearance Pupil Exam: PERRL - ENT Exam ENT Exam: Mucous Membranes Moist, Normal Exam - Neck Exam Neck Exam: Full ROM, Normal Inspection - Respiratory Exam Respiratory Exam: Clear to Ausculation Bilateral, NORMAL BREATHING PATTERN - Cardiovascular Exam Cardiovascular Exam: REGULAR RHYTHM, RRR - GI/Abdominal Exam GI & Abdominal Exam: Distended (no tenderness over transplant kidney), Soft - Extremities Exam Extremities Exam: Full ROM, Normal Inspection - Neurological Exam Neurological Exam: Alert, Awake, Oriented x3 - Psychiatric Exam Psychiatric exam: Normal Affect, Normal Mood - Skin Skin Exam: Intact, Warm Assessment and Plan (1) Generalized weakness Status: Acute (2) History of kidney transplant Status: Acute (3) Hypomagnesemia Status: Acute (4) Type 2 diabetes mellitus with diabetic nephropathy Status: Acute - Assessment and Plan (Free Text) Assessment: stable renal transplant function maintain immunosuppression magnesium supplement outpt follow up
[2017-11-24] MEDS ORDERED: Tmp-Smz 800 mg-160 mg DS Tab PO SCH (09:00)
[2017-11-24] MEDS ORDERED: Pneumococcal 23-Valent Vaccine IM ONE (10:00)
[2017-11-24 15:55] LABS: MYCOPHENOLIC ACID 2.4 mcg/mL (1.0-3.5)
== END 2017-11-23 14:48 | disposition home or self-care (01) | DRG 69 ==
LOC: C.ER 16:33 → C.9E 19:20 → C.6T 20:38
PROVIDERS: ADMIT Internal Medicine; ATTEND Internal Medicine
DX: G45.9 Transient cerebral ischemic attack, unspecified (principal); Z94.0 Kidney transplant status; R20.0 Anesthesia of skin; R53.1 Weakness; E11.21 Type 2 diabetes mellitus with diabetic nephropathy; E83.42 Hypomagnesemia; E11.22 Type 2 diabetes mellitus with diabetic chronic kidney disease; I12.9 Hypertensive chronic kidney disease with stage 1 through stage 4 chronic kidney disease, or unspecified chronic kidney disease; N18.9 Chronic kidney disease, unspecified; E78.00 Pure hypercholesterolemia, unspecified; Z53.20 Procedure and treatment not carried out because of patient's decision for unspecified reasons; Z79.02 Long term (current) use of antithrombotics/antiplatelets; Z79.4 Long term (current) use of insulin; Z79.82 Long term (current) use of aspirin; Z86.73 Personal history of transient ischemic attack (TIA), and cerebral infarction without residual deficits